=== PATIENT | male | born 1990 | race African-American/Black ===

== ENCOUNTER 2023-05-21 02:32 | Emergency (ER) | payer OTHER ==
[~2023-05-21] VITALS: Ht 177.8 cm; Wt 83.0 kg
[2023-05-21 02:56] VITALS: BP 153/91; TEMP 98
[2023-05-21] MEDS ORDERED: NAPR-1009 PO (04:00)
[2023-05-21 04:14] VITALS: O2SAT 98
== END 2023-05-21 04:15 | disposition home or self-care (01) ==
LOC: ER 02:38
DX: M25.511 Pain in right shoulder (principal); F19.10 Other psychoactive substance abuse, uncomplicated
CPT/HCPCS: 73030-TC